=== PATIENT | female | born 1980 | race Caucasian/White ===

== ENCOUNTER 2023-04-15 08:22 | Observation (INO) ==
--- NOTE | 2023-03-27 12:03 | PAT Medication Instructions ---
Medication Instructions Date of Service March 27, 2023 Home Medications Medication Instructions Recorded etonogestrel 68 mg subdermal 1 implant subdermal ONCE #1 ea 01/25/22 implant (Nexplanon) metformin 500 mg tablet,extended 500 mg PO DAILY #90 tabs 12/10/22 release 24hr cyclobenzaprine 5 mg tablet 5 - 10 mg PO HS #60 tabs 03/03/23 citalopram 20 mg tablet 20 mg PO DAILY #90 tabs 03/12/23 dextroamphetamine-amphetamine ER 5 5 mg PO DAILY #30 caps 03/12/23 mg 24hr capsule,extend release (Adderall XR) famotidine 40 mg tablet 40 mg PO DAILY #30 tabs 03/12/23 etonogestrel 68 mg subdermal implant (Nexplanon) 1 implant subdermal ONCE metformin 500 mg tablet,extended release 24hr 500 mg PO DAILY gabapentin 300 mg capsule 600 mg PO PM PRN Pain cyclobenzaprine 5 mg tablet 5 - 10 mg PO HS citalopram 20 mg tablet 20 mg PO DAILY dextroamphetamine-amphetamine ER 5 mg 24hr capsule,extend release (Adderall XR) 5 mg PO DAILY famotidine 40 mg tablet 40 mg PO DAILY Continue as directed etonogestrel 68 mg subdermal implant (Nexplanon) 1 implant subdermal ONCE citalopram 20 mg tablet 20 mg PO DAILY famotidine 40 mg tablet 40 mg PO DAILY DO NOT take the morning of surgery metformin 500 mg tablet,extended release 24hr 500 mg PO DAILY dextroamphetamine-amphetamine ER 5 mg 24hr capsule,extend release (Adderall XR) 5 mg PO DAILY Take morning of surgery With a small sip of water, OTHERWISE NOTHING TO EAT OR DRINK AFTER MIDNIGHT: gabapentin 300 mg capsule 600 mg PO PM PRN Pain (if needed) Take evening before surgery gabapentin 300 mg capsule 600 mg PO PM PRN Pain (if needed) cyclobenzaprine 5 mg tablet 5 - 10 mg PO HS Other Notes If you have any questions please call us at [phone] or [phone] or [phone] or [phone]
--- NOTE | 2023-04-01 10:52 | Anesthesiology Consultation ---
Date of Service April 01, 2023 Assessment & Plan (1) Encounter for pre-operative examination: - awaiting upcoming PCP clearance 04/03/23. - check BSG and urine test STAT am DOS. Chart Review Chart Review: Pending: Refer to Additional Notes / Consult section and Patient seen in Pre Admission Testing Teaching & Discussion Pre-Anesthesia Teaching/Discussion Notes: Instructed NPO after midnight before surgery, except medications with 15 cc of water. Medication instructions provided according to the PAT guidelines. History Surgery Operation Date: 04/15/23 07:45 Proposed Procedures p L4-S1 Decompression and Fusion, Spinal Cord Monitoring - Timothy Bonilla DO Height/Weight Height: 5 ft 2 in Weight: 100.3 kg Allergies Allergy/AdvReac Type Severity Reaction Status Date / Time seasonal allergies Allergy Intermediate CONGESTION Uncoded 03/20/23 11:04 Medications Home Medications Medication Instructions Recorded Confirmed Last Taken etonogestrel 68 mg subdermal 1 implant subdermal ONCE #1 ea 01/25/22 03/20/23 Unknown implant (Nexplanon) metformin 500 mg tablet,extended 500 mg PO DAILY #90 tabs 12/10/22 03/20/23 12/12/22 release 24hr gabapentin 300 mg capsule 600 mg PO PM PRN Pain 12/13/22 03/20/23 Unknown cyclobenzaprine 5 mg tablet 5 - 10 mg PO HS #60 tabs 03/03/23 03/20/23 Unknown citalopram 20 mg tablet 20 mg PO DAILY #90 tabs 03/12/23 03/20/23 Unknown dextroamphetamine-amphetamine ER 5 5 mg PO DAILY #30 caps 03/12/23 03/20/23 Unknown mg 24hr capsule,extend release (Adderall XR) famotidine 40 mg tablet 40 mg PO DAILY #30 tabs 03/12/23 03/20/23 Unknown Past Medical History Medical History (Updated 04/01/23 @ 11:10 by Radha Betts PA-C) ADHD Anxiety and depression GERD (gastroesophageal reflux disease) improved with famotidine, pt reports still occasionally wakes in morning with nausea and vomiting History of COVID-19 >1 YR AGO, 2021- FEVER, COUGH, CHILLS; RESOLVED Hypothyroidism Insulin resistance ON METFORMIN Nausea and vomiting after administration of anesthetic agent patient unsure if received scop patch with PONV s/p partial thyroidectomy requiring overnight stay vs SDS PCOS (polycystic ovarian syndrome) Vertigo occasional Patient denies h/o stroke, seizures, heart attack, heart failure, HTN, blood clots or blood transfusions. Exercise / Class Metabolic Activity III < 4 Walking/Shop/Light housework (denies chest discomfort or shortness of breath with usual activities) Past Family History Family History Grandmother (Paternal) Breast cancer Mother Heart disease Depression Father Heart disease Dementia Sister Dyslipidemia Denies family history of Ovarian cancer Prostate cancer Myocardial infarction Colorectal cancer Past Surgical History Surgical History H/O partial thyroidectomy Past Anesthesia History No Hx of Anesthesia Complications and No Family Hx of Anesthesia Complications History of PONV History of PONV (s/p partial thyroidectomy-SDS changed to overnight d/t PONV; unsure if scop patch was administered) and Hx of Motion Sickness Social History Smoking Status: Never smoker Do You Dip or Chew Tobacco: No Hx Alcohol Use: Yes alcohol intake frequency: holidays/special occasions only Hx Substance Use: Yes (edibles, once every couple months - advised) substance use type: marijuana Last Used Substance Other:: 3 mos ago Review of Systems Snoring, denies witnessed apneas. Patient denies chest pain, shortness of breath, dyspnea on exertion, reflux, fever, chills, cough, wheezing, or palpitations. Physical Exam Vital Signs Vitals BP 123/86 P 102 (pt states is often anxious in clinical settings) TEMP 98.4 SP02 97% on RA RESP 17 Physical Full cervical extension range of motion without pain TMD 3.5 finger breadths Mallampati Score 3 Dentition: intact, denies chipped or loose teeth, caps/crowns, implants or bridges Lungs: normal respiratory effort. Clear throughout to auscultation, no adventitious breath sounds Cardiac: tachycardic, regular rhythm, no murmurs noted Carotid arteries: negative bruit bilat Lab Results Anesthesia Preop Results Results Anesthesia Widget: WBC 6.60 K/ul (4.8-10.8) 04/01/23 Hgb 13.6 g/dl (12.0-16.0) 04/01/23 Hct 40.9 % (37.0-47.0) 04/01/23 Plt 296 K/uL (130-400) 04/01/23 Na 135 mmol/L (136-145) L 04/01/23 K 4.5 mmol/L (3.5-5.1) 04/01/23 Cl 101 mmol/L (98-107) 04/01/23 CO2 27 mmol/L (21-32) 04/01/23 BUN 10 mg/dl (6-23) 04/01/23 Creat 0.83 mg/dl (0.6-1.2) 04/01/23 Glucose Level 138 mg/dl (70-99(Fasting)) H 04/01/23 PT 10.5 Seconds (9.0-12.0) 04/01/23 PTT 27.3 Seconds (21.0-31.0) 04/01/23 INR 1.0 (0.9-1.1) 04/01/23 HA1c 6.5 % (4.5-5.6) H 04/01/23 Urine Color Yellow 04/01/23 Urine Appearance Clear (Clear) 04/01/23 Urine pH 8.0 (4.5-7.5) H 04/01/23 Urine Specific [place] 1.025 (1.000-1.030) 04/01/23 Urine Protein Negative (Negative) 04/01/23 Urine Glucose (UA) Negative (Negative) 04/01/23 Urine Ketones Negative (Negative) 04/01/23 Urine Blood Negative (Negative) 04/01/23 Urine Nitrite Negative (Negative) 04/01/23 Urine Bilirubin Negative (Negative) 04/01/23 Urine Urobilinogen Negative (Negative) 04/01/23 Urine Leukocyte Esterase Negative (Negative) 04/01/23 Blood Type A Negative 04/01/23 Antibody Screen NEGATIVE 04/01/23 Testing Electrocardiogram Date: 02/02/23 Poor data quality NSR, rate 86 bpm Chest X-Ray Date: 04/01/23 No prior studies are available for comparison at the time of dictation. Surgical clips project over the left lower neck. The cardiomediastinal silhouette is unremarkable. The lungs and pleural spaces are clear. There is no pneumothorax. The bony thorax appears intact. IMPRESSION: No active disease in the chest. COVID-19 Risk Screen Screening Information COVID-19 Screen Date: 04/01/23 Exposure 21 Days Family/Household +COVID Last 21 Days: No Exposure 10 Days Any COVID Exposure Last 10 Days: No Symptoms Last 10 Days Experienced COVID Sx Last 10 Days: No + COVID 0-90 Days COVID + in Last 0-90 Days: No
[~2023-04-15 08:22] MED LIST: ACETAMINOPHEN 500 MG TAB PO SCH; CeleBREX 200 MG CAP PO SCH; GABAPENTIN 600 MG DOSE PO SCH; LR 15ML/HR IV SCH; ceFAZolin 2000MG 2,000 MG/15 ML SYR IV SCH
[2023-04-15] MEDS ORDERED: MIDAZOLAM HCL 1 MG/ML 2ML VIAL ONE (09:06)
[2023-04-15] MEDS ORDERED: fentaNYL citrate PF 100 MCG/2 ML VIAL ONE (09:06)
--- NOTE | 2023-04-15 09:32 | History & Physical Bridge Note ---
Date of Service April 15, 2023 History & Physical Bridge Note I have examined the patient, reviewed the History & Physical and in the interval since the performance of the History & Physical I have noted the following changes of clinical significance: no changes noted
--- NOTE | 2023-04-15 09:34 | History & Physical Report ---
Date of Service April 15, 2023 Assessment & Plan (1) Neurogenic claudication due to lumbar spinal stenosis: Plan: L4-S1 decompression and fusion History of Present Illness Chief Complaint: Back and leg pain Primary Care Provider: Zi Cooper DO This is a 42-year-old female who presents with chronic persistent back and leg pain after failing course of nonoperative care she is here for surgical invention. Allergies Allergy/AdvReac Type Severity Reaction Status Date / Time No Known Allergies Allergy Verified 04/11/23 07:33 Home Medications Medication Instructions Recorded Confirmed Type etonogestrel 68 mg subdermal 1 implant subdermal ONCE #1 ea 01/25/22 04/15/23 Rx implant (Nexplanon) metformin 500 mg tablet,extended 500 mg PO DAILY #90 tabs 12/10/22 04/15/23 Rx release 24hr gabapentin 300 mg capsule 600 mg PO PM PRN Pain 12/13/22 04/15/23 History (Neurontin) citalopram 20 mg tablet 20 mg PO DAILY #90 tabs 03/12/23 04/15/23 Rx famotidine 40 mg tablet 40 mg PO DAILY #30 tabs 03/12/23 04/15/23 Rx cyclobenzaprine 5 mg tablet 5 - 10 mg PO HS PRN muscle relax 04/15/23 04/15/23 History dextroamphetamine-amphetamine ER 5 mg PO DAILY 04/15/23 History 10 mg 24hr capsule,extend release (Adderall XR) Past Med/Surg History Medical History (Updated 04/15/23 @ 09:33 by Timothy Bonilla DO) Anxiety and depression GERD (gastroesophageal reflux disease) improved with famotidine, pt reports still occasionally wakes in morning with nausea and vomiting History of COVID-19 >1 YR AGO, 2021- FEVER, COUGH, CHILLS; RESOLVED Hypothyroidism Insulin resistance ON METFORMIN Nausea and vomiting after administration of anesthetic agent patient unsure if received scop patch with PONV s/p partial thyroidectomy requiring overnight stay vs SDS PCOS (polycystic ovarian syndrome) Vertigo occasional Surgical History (Updated 04/03/23 @ 09:53 by Zi Cooper DO) H/O partial thyroidectomy Family History Grandmother (Paternal) Breast cancer Mother Heart disease Depression Father Heart disease Dementia Sister Dyslipidemia Denies family history of Ovarian cancer Prostate cancer Myocardial infarction Colorectal cancer Social History Smoking Status: Never smoker Second Hand Exposure: Yes (in the past); Do You Dip or Chew Tobacco: No; Tobacco Cessation Education Requested by Patient: No Hx Alcohol Use: Yes Alcohol Intake Frequency: 2-3 x/Week Hx Substance Use: Yes (edibles, once every couple months - advised) Non- Prescribed Medications: Marijuana Last Used Substance Other:: 3 mos ago Preferred Language: Yakut Communication Ability: Effective Visual Impairment: No Limitations Hearing Ability: Normal Overhead Worker Required: No Beliefs That Will Affect Care: None marital status: Single Current Living Situation: Alone current occupational status: employed current occupation: [employer] Other Information That Helps Us Care for You: No Feels Safe at Home: Yes Safety Concerns: Feels Safe At This Time Childhood Exposure to Second-Hand Smoke: Yes Diet: regular Diet Comment: regular caffeine: Yes during the past year weight has: increased > 10 lbs Dental Care, Regularly: No Physical Activity Frequency: Daily Seatbelt Use: always Sunscreen Use: Yes Assistive Devices: Glasses Physical Exam Physical Exam: Patient is alert and oriented Heart regular rate and rhythm Lungs clear Results & Data Results & Data Vital Signs (Past 12 Hours) Vital Signs Temp Pulse Resp BP Pulse Ox O2 Del Method 04/15/23 08:46 36.9 C 99 H 18 142/97 H 97 Room Air
[2023-04-15] MEDS ORDERED: SCOPOLAMINE 1 MG TDSY TD ONE ×2 (09:44→09:46)
[2023-04-15] MEDS ORDERED: LABETALOL HCL IV 5 MG/ML 20ML IV PRN (09:47)
[2023-04-15] MEDS ORDERED: ONDANSETRON INJ 2 MG/ML 2 ML VIAL IV PRN ×2 (09:47→14:20)
[2023-04-15] MEDS ORDERED: PROMETHAZINE HCL 12.5 MG in SODIUM CHLORIDE 0.9% 50 ML IV PRN ×2 (09:47→14:20)
[2023-04-15] MEDS ORDERED: ATROPINE SULFATE 0.1 MG/ML 10ML SYR IV PRN (09:47)
[2023-04-15] MEDS ORDERED: ceFAZolin 330 MG/ML 1 GM VIAL ONE (09:50)
[2023-04-15] MEDS ORDERED: BUPIVACAINE/EPINEPHRINE 0.25% 1:200,000 30 ML VIAL ONE (09:50)
[2023-04-15] MEDS ORDERED: ROCURONIUM BROMIDE 10 MG/ML 5 ML VIAL IV ONE ×3 (10:17→11:02)
[2023-04-15] MEDS ORDERED: PROPOFOL IV EMULSION 10 MG/ML 20 ML VIAL IV ONE ×2 (10:17→12:08)
[2023-04-15] MEDS ORDERED: LIDOCAINE 2% 2 ML VIAL/AMP(20MG/ML) INFIL ONE (10:17)
[2023-04-15] MEDS ORDERED: DEXAMETHASONE SOD INJ 4 MG/ML VIAL ONE (11:02)
[2023-04-15] MEDS ORDERED: ePHEDrine sulfate 50 MG/ML AMP ONE (11:02)
[2023-04-15] MEDS ORDERED: FLOSEAL HEMOSTATIC MATRIX 10ML TOP ONE (11:05)
[2023-04-15] MEDS ORDERED: GLYCOPYRROLATE 0.2 MG/ML VIAL ONE (12:18)
[2023-04-15] MEDS ORDERED: NEOSTIGMINE METHYLSULFATE 1 MG/ML 10ML VIAL ONE (12:18)
--- NOTE | 2023-04-15 12:31 | Operative Report ---
Post Operative Report Pre & Post Diagnosis Operation Date: 04/15/23 10:05 Pre-Op Diagnosis: Neurogenic claudication due to lumbar spinal stenosis Spondylolisthesis L5-S1 Morbid obesity Post-Op Diagnosis: Same I identified the patient and participated in the time-out.: Yes Procedure Operation Date: 04/15/23 10:05 Actual Procedures #1 lumbar decompression bilateral medial facetectomies and foraminotomies L4-L5 L5-S1. #2 posterior spinal fusion L4-L5 L5-S1. #3 placed posterior instrumentation L4-L5 L5-S1. #5 placement of interbody cages L4-5 L5-S1. #6 placement Spira 13 x 26 mm at L4-L5 and 9 x 22 mm at L5-S1. #6 placement locally harvested morselized autograft and posterior gutters. #7 placement of I factor combined with the test interbody space and posterior gutters. Surgeon Timothy Bonilla, DO Echo Technician Christina Miller Estimated Blood Loss 550 Findings See Below The patient is 5 foot 2 weighing over 100 kg with a BMI in excess of 40. Patient's body habitus did contribute to significant technical difficulty of primary deepest retractors and longer instruments in order to perform her procedure. This at least 50% increased operative time. Specimens None Indications This is a 42-year-old female who presents above-mentioned diagnosis of failed course of nonoperative care she is here for surgical invention. Description of Procedure Patient was met with identified informed consent obtained. Patient was then taken to the operative suite underwent a patient placed in a prone position the Gabriels table top Rich frame. All bony promises well-padded eyes inspected to ensure no external pressure placed upon the. This point lumbar spine was prepped and draped in normal sterile fashion. Sharp dissection with the assistance of Bovie cautery to form down to and exposing lamina transverse process of L5 and the sacral ala bilaterally. Obvious bilateral pars defect identified. A complete laminectomy was performed addressing bilateral foraminal stenosis. Pedicle screws then attempted to be placed at L5 bilaterally. The pedicles were hypotrophic from the pars defect and I was unable to obtain adequate placement and purchase. Pedicle screws were placed successfully and S1. I chose to extend the decompression up to L4 to address further lateral recess stenosis and obtain adequate fixation for the fusion required for the spondylolisthesis. I did obtain adequate purchase in the bilateral L4 pedicles. At this point by way of transforaminal approach on the right a complete discectomy of L4-L5 was performed endplates guided to subcortically bone and a 13 x 26 mm Spira cage with I factor tapped position. By way of a transfemoral approach on the left at L5-S1 was able to obtain access to the spine disc base which is markedly collapsed from the spondylolisthesis. Was able to establish approximate 9 mm of height and placed a 9 mm Spira cage with I factor into position. This provided marked improvement of the foraminal disease. Proper size rods were placed locked in position bilaterally. The transverse processes of L4-L5 and the sacral ala burred to subcortically bone. I factor amount of the test and locally harvested morselized autograft was placed in the posterior gutters. 15 round JACKY drain inserted. The incision was then closed with 1 Vicryl to fascia 2-0 Vicryl subcutaneously and 4 Monocryl for final skin closure. Steri-Strip sterile dressing placed. Patient awakened and taken to PACU in stable condition. Please note spinal cord monitoring was utilized at the procedure no changes noted. Lastly Christina Miller was present at the entire surgery involved the patient positioning complex portion of the surgery and final skin closure. I attest to the content of the Intraoperative Record and any orders documented therein. Any exceptions are noted below.
--- NOTE | 2023-04-15 12:48 | Fluoroscopy Report ---
FL lumbar spine 2-3V CLINICAL HISTORY: L4-S1 DFI COMPARISON STUDY: Lumbar spine MRI October 10, 2022. FLUOROSCOPY TIME: 46 seconds. Ka, r: 44.48 mGy FLUOROSCOPIC IMAGES: 2 FINDINGS: Fluoroscopy was provided during L4-L5 and L5-S1 discectomies with interbody spacer placemen t. Anali decompression is noted. There are bilateral pedicle screws at the L4, L5 and S1 levels. The hardware is intact. Bilateral L5 pars defects with anterolisthesis of L5 on S1 was depicted on previ ous MRI. IMPRESSION: Fluoroscopy provided L4-L5 and L5-S1 discectomies with posterior decompression and L4-S1 bilateral pedicle screw fusion. ACT 112: Negative or not required by law. Electronically signed by: Armen Griffiths M.D. 04/15/2023 12:47 PM
[2023-04-15] MEDS: HYDROmorphone INJ 1 MG/ML SYRINGE IV PRN ×3 (12:56→13:11)
[2023-04-15] MEDS ORDERED: SODIUM CHLORIDE 0.9% 1000ML 1,000 ML IV SCH (14:20)
[2023-04-15] MEDS ORDERED: FAMOTIDINE 20 MG TAB PO PRN (14:20)
[2023-04-15] MEDS ORDERED: bisacodyL 10 MG SUPP PR PRN (14:20)
[2023-04-15] MEDS ORDERED: PHARMACY GLYCEMIC MGMT CONSULT PRN (14:20)
[2023-04-15] MEDS ORDERED: LORazepam 0.5 MG TAB PO PRN (14:20)
[2023-04-15] MEDS ORDERED: DO NOT ADMINISTER PNEUMOCOCCAL VACCINE PRN (14:20)
[2023-04-15] MEDS ORDERED: ONDANSETRON 4 MG OD TAB PO PRN (14:20)
[2023-04-15] MEDS ORDERED: ACETAMINOPHEN 500 MG TAB PO PRN (14:20)
[2023-04-15] MEDS ORDERED: LORazepam 2 MG/1 ML VIAL IV PRN (14:20)
[2023-04-15] MEDS ORDERED: GABAPENTIN 300 MG CAP PO PRN (14:20)
[2023-04-15] MEDS ORDERED: MAGNESIUM HYDROXIDE SUSP 30 ML UDC PO PRN (14:20)
[2023-04-15] MEDS ORDERED: ACETAMINOPHEN 1,000 MG/100 ML VIAL IV PRN (14:20)
[2023-04-15] MEDS ORDERED: hydrOXYzine HCl 25 MG TAB PO PRN (14:20)
[2023-04-15] MEDS ORDERED: diphenhydrAMINE Capsule 25 MG CAP PO PRN (14:20)
[2023-04-15] MEDS ORDERED: METOCLOPRAMIDE HCL INJ 5 MG/ML 2 ML VIAL IV PRN (14:20)
[2023-04-15] MEDS ORDERED: DO NOT ADMINISTER FLU VACCINE PRN (14:20)
[2023-04-15] MEDS ORDERED: HYDROmorphone INJ 0.5 MG/0.5 ML SYR IV PRN (14:20)
[2023-04-15] MEDS ORDERED: NALOXONE HCL 0.4 MG/1 ML VIAL/CARP IV PRN (14:20)
[2023-04-15] MEDS ORDERED: SOD PHOSPHATE/SOD BIPHOSPHATE ENEMA 132 ML BTL PR PRN (14:20)
[2023-04-15] MEDS ORDERED: ALUMINUM/MAGNESIUM SUSP 30 ML UDC PO PRN (14:20)
[2023-04-15] MEDS ORDERED: HYDROmorphone INJ 1 MG/ML SYRINGE IV PRN (14:20)
--- NOTE | 2023-04-15 15:00 | Anesthesiology Progress Note ---
Date of Service April 15, 2023 Anesthesia Post Procedure Vital Signs Vital Signs: Temp Pulse Pulse Resp BP Pulse Ox O2 Del Method 04/15/23 14:30 101 H 12 98/68 L 98 Nasal Cannula 04/15/23 14:15 104 H 13 100/69 98 Nasal Cannula 04/15/23 14:00 102 H 13 93/66 L 97 Nasal Cannula 04/15/23 13:45 100 H 13 97/60 L 97 Nasal Cannula 04/15/23 13:30 36.4 C L 97 H 12 113/60 97 Nasal Cannula 04/15/23 13:20 96 H 12 110/66 99 Nasal Cannula 04/15/23 13:10 94 H 12 93/60 L 98 Nasal Cannula 04/15/23 13:00 98 H 14 94/49 L 96 Nasal Cannula 04/15/23 12:51 93 H 21 94/46 L 95 Nasal Cannula 04/15/23 12:43 36.0 C L 97 H 10 L 101/67 96 Nasal Cannula 04/15/23 08:46 36.9 C 99 H 18 142/97 H 97 Room Air O2 Flow Rate 04/15/23 14:30 2 04/15/23 14:15 2 04/15/23 14:00 2 04/15/23 13:45 2 04/15/23 13:30 2 04/15/23 13:20 4 04/15/23 13:10 4 04/15/23 13:00 4 04/15/23 12:51 4 04/15/23 12:43 4 04/15/23 08:46 Pain Intensity Lower Back: Pain Intensity: 3 Transfer of Care Handoff Completed per policy Notes Mental Status: alert / awake / arousable Patient Amnestic to Procedure: Yes Nausea / Vomiting: adequately controlled Pain: adequately controlled Airway Patency, RR, SpO2: stable & adequate BP & HR: stable & adequate Hydration State: stable & adequate Anesthetic Complications: no major complications apparent
[2023-04-15] MEDS ORDERED: GLUCOSE 10 TAB/TUBE PO PRN (15:15)
[2023-04-15] MEDS ORDERED: GLUCOSE 40% GEL 15 GM TUBE PO PRN (15:15)
[2023-04-15] MEDS ORDERED: DEXTROSE 50% 50 ML SYRINGE IV PRN (15:15)
[2023-04-15] MEDS ORDERED: CARBOHYDRATES FOR HYPOGLYCEMIA PO PRN (15:15)
[2023-04-15] MEDS ORDERED: GLUCAGON FOR INJ 1 MG VIAL IM PRN (15:15)
--- NOTE | 2023-04-15 15:45 | Hospitalist Consultation ---
Date of Consultation April 15, 2023 Assessment & Plan (1) Neurogenic claudication due to lumbar spinal stenosis: Neurogenic claudication 2/2 lumbar stenosis s/p decompression and fusion Postop pain control, DVT prophylaxis, and activity restrictions per primary team Patient recovering well at bedside. Does have some pain overlying her surgical site, and prior pain in her right leg is now more of a numbness, left leg feels normal Reports that she had bilateral leg pain and some back pain preoperatively. Postop she has some qualitative left numbness compared to the right, but no burning in either leg. She has some pain in her low back overlying the surgical site well controlled with tramadol. JACKY drain intact draining scant amount of sanguinous material Patient had approximately 550 cc of output intraoperatively, 100 cc of output in her catheter. She remains mildly tachycardic, and mild but improving hypotension. Clinically appears slightly volume contracted with tacky mucous membranes. Lungs are clear without evidence of rales/rhonchi on exam, and she is not hypoxic additional 500 cc LR ordered and then placed to maintenance Trend CBC/BMP daily BMI greater than 40 Preoperative EKG sinus rhythm without ST/T wave changes No prior history of angina No chest pain/chest pressure/shortness of breath postoperatively History of hemithyroidectomy Noted. Last TSH normal. No acute change in management for this History of PCOS Pre-DM management as noted Patient has a Nexplanon implant, noted Impaired fasting glucose Preop A1c 6.5% SSI insulin 04/15, may resume metformin on discharge if renal function remains at baseline Postop BSG 105. Patient having diet progressed, pharmacy on board for additional glycemic management as needed Anxiety/depression Continue citalopram 20 mg daily In summary Preethi is a pleasant 42-year-old female s/p lumbar decompression and fusion. She is doing well postoperatively, remains slightly volume contracted and tachycardic and receiving 1 additional fluid bolus and then placed on maintenance pending increase in p.o. intake. CBC/BMP in the morning. Hold Adderall while inpatient, otherwise can continue her home medications. DVT prophylaxis, activity, and pain control per primary team patient does have appropriate postoperative pain which is adequately controlled with tramadol. Pepcid daily is continued for stress prophylaxis, if epigastric pain develops convert this to Protonix. (2) PCOS (polycystic ovarian syndrome): (3) Thyroid nodule: (4) Hypothyroidism: (5) Anxiety and depression: (6) ADHD: History of Present Illness Attending Physician: Timothy Bonilla, DO History of Present Illness Preethi Escobedo is a 42-year-old female s/p L4-S1 decompression and fusion by Dr. Bonilla 04/15/2023, we have been consulted for postoperative medical management of comorbidities. Preethi has an additional history of PCOS, hypothyroidism, anxiety/depression, ADHD, thyroid nodule, and vertigo. She has a Nexplanon implant in place. Preoperative labs 04/01 had a normal white blood cell count, baseline hemoglobin of 13.6, baseline creatinine of 0.83, A1c of 6.5%, and baseline sodium of 135. UA was uninfected appearing, COVID 04/15/2023 was negative. Patient underwent L4-S1 decompression and fusion with Dr. Bonilla, 550 cc of estimated blood loss. Procedure was technically challenging due to BMI over 40 with increased operative time. No changes were noted on procedural spinal cord monitoring. She seen the bedside with her mother present. She reports that she is having some postop pain overlying her surgical site in her back, left leg feels numb but is not burning, and right leg feels good. Pain is improved with tramadol. She has not had any fever, chills, sweats, lightheadedness, dizziness. She does not feel her heart racing is not having any chest pain or chest pressure. She has not noticed any bleeding since coming out of surgery. She is able to move her legs with good strength and has not noticed any weakness. No nausea/vomiting. No abdominal pain. Confirms Nexplanon in left arm. No additional questions or concerns at the bedside Medical History: Reviewed Medications: Reviewed Surgical History: Reviewed Family history: Reviewed Allergies: Reviewed Social History: No tobacco/etoh Code Status: Full Code Allergies Allergy/AdvReac Type Severity Reaction Status Date / Time No Known Allergies Allergy Verified 04/11/23 07:33 Home Medications Medication Instructions Recorded Confirmed Type etonogestrel 68 mg subdermal 1 implant subdermal ONCE #1 ea 01/25/22 04/15/23 Rx implant (Nexplanon) metformin 500 mg tablet,extended 500 mg PO DAILY #90 tabs 12/10/22 04/15/23 Rx release 24hr gabapentin 300 mg capsule 600 mg PO PM PRN Pain 12/13/22 04/15/23 History (Neurontin) citalopram 20 mg tablet 20 mg PO DAILY #90 tabs 03/12/23 04/15/23 Rx famotidine 40 mg tablet 40 mg PO DAILY #30 tabs 03/12/23 04/15/23 Rx cyclobenzaprine 5 mg tablet 5 - 10 mg PO HS PRN muscle relax 04/15/23 04/15/23 History dextroamphetamine-amphetamine ER 5 mg PO DAILY 04/15/23 History 10 mg 24hr capsule,extend release (Adderall XR) Patient History Medical History (Updated 04/15/23 @ 09:33 by Timothy Bonilla DO) Anxiety and depression GERD (gastroesophageal reflux disease) improved with famotidine, pt reports still occasionally wakes in morning with nausea and vomiting History of COVID-19 >1 YR AGO, 2021- FEVER, COUGH, CHILLS; RESOLVED Hypothyroidism Insulin resistance ON METFORMIN Nausea and vomiting after administration of anesthetic agent patient unsure if received scop patch with PONV s/p partial thyroidectomy requiring overnight stay vs SDS PCOS (polycystic ovarian syndrome) Vertigo occasional Surgical History (Updated 04/03/23 @ 09:53 by Zi Cooper DO) H/O partial thyroidectomy Family History Grandmother (Paternal) Breast cancer Mother Heart disease Depression Father Heart disease Dementia Sister Dyslipidemia Denies family history of Ovarian cancer Prostate cancer Myocardial infarction Colorectal cancer Social History Smoking Status: Never smoker Second Hand Exposure: Yes (in the past); Do You Dip or Chew Tobacco: No; Tobacco Cessation Education Requested by Patient: No Hx Alcohol Use: Yes Alcohol Intake Frequency: 2-3 x/Week Hx Substance Use: Yes (edibles, once every couple months - advised) Non- Prescribed Medications: Marijuana Last Used Substance Other:: 3 mos ago Preferred Language: Sami Communication Ability: Effective Visual Impairment: No Limitations Hearing Ability: Normal Cpht Required: No Beliefs That Will Affect Care: None marital status: Single Current Living Situation: Alone current occupational status: employed current occupation: armed guard Other Information That Helps Us Care for You: No Feels Safe at Home: Yes Safety Concerns: Feels Safe At This Time Childhood Exposure to Second-Hand Smoke: Yes Diet: regular Diet Comment: regular caffeine: Yes during the past year weight has: increased > 10 lbs Dental Care, Regularly: No Physical Activity Frequency: Daily Seatbelt Use: always Sunscreen Use: Yes Assistive Devices: Glasses Review of Systems 2 Review of Systems: All systems reviewed & are unremarkable except as noted in HPI & below Physical Exam Physical Exam: General: A&Ox3. NAD. Cooperative. HEENT: Atraumatic, normocephalic. Vision/hearing grossly intact. Pupils equal and reactive to light Pulm: CTAB A&P. -wheezes, -rales, -rhonchi. Symmetrical chest rise. No increased work of breathing. No respiratory distress. Cardiac: Regular, tachycardic, -mrg. Radial pulses intact and symmetrical. Abdominal: Nontender, nondistended, soft. BS present. Skin/back: Postop midline lumbar surgical dressing intact, C/D/I. JACKY drain in place draining scant amount of sanguinous material. Extremities: Ankle dorsiflexion/plantarflexion 5/5 bilaterally. PT pulse intact bilaterally. Cap refill less than 2 seconds in hallux bilaterally. Sensation of soft touch is intact in feet bilaterally, has some qualitative difference in sensation with i more numbness in the left foot and ankle. Results & Data Results & Data Vital Signs (Past 12 Hours) Vital Signs Temp Pulse Pulse Resp BP Pulse Ox O2 Del Method 04/15/23 15:20 36.6 C 100 H 18 100/65 95 Room Air 04/15/23 14:50 36.8 C 108 H 18 99/58 L 99 Nasal Cannula 04/15/23 14:30 101 H 12 98/68 L 98 Nasal Cannula 04/15/23 14:15 104 H 13 100/69 98 Nasal Cannula 04/15/23 14:00 102 H 13 93/66 L 97 Nasal Cannula 04/15/23 13:45 100 H 13 97/60 L 97 Nasal Cannula 04/15/23 13:30 36.4 C L 97 H 12 113/60 97 Nasal Cannula 04/15/23 13:20 96 H 12 110/66 99 Nasal Cannula 04/15/23 13:10 94 H 12 93/60 L 98 Nasal Cannula 04/15/23 13:00 98 H 14 94/49 L 96 Nasal Cannula 04/15/23 12:51 93 H 21 94/46 L 95 Nasal Cannula 04/15/23 12:43 36.0 C L 97 H 10 L 101/67 96 Nasal Cannula 04/15/23 08:46 36.9 C 99 H 18 142/97 H 97 Room Air O2 Flow Rate 04/15/23 15:20 04/15/23 14:50 2 04/15/23 14:30 2 04/15/23 14:15 2 04/15/23 14:00 2 04/15/23 13:45 2 04/15/23 13:30 2 04/15/23 13:20 4 04/15/23 13:10 4 04/15/23 13:00 4 04/15/23 12:51 4 04/15/23 12:43 4 04/15/23 08:46 PG Care Time/CCT Total # of Minutes Spent Total Time Spent with Patient: Total time spent is greater than 50% in coordination of care (as documented) at patient's floor/unit and/or counseling patient: Coding Level of Care Code 77110 IN/OBS CONSULT LVL 4,60M Diagnoses Neurogenic claudication due to lumbar spinal stenosis M48.062 PCOS (polycystic ovarian syndrome) E28.2 Thyroid nodule E04.1 Hypothyroidism E03.9 Anxiety and depression F41.9; F32.A ADHD F90.9
[2023-04-15] MEDS: traMADol HCL 50 MG TABLET PO PRN ×2 (15:53→20:49)
[2023-04-15] MEDS ORDERED: LACTATED RINGER'S 500 ML IV ONE (15:55)
[2023-04-15] MEDS ORDERED: LACTATED RINGER'S 1,000 ML IV SCH (16:00)
[2023-04-15] MEDS: CHECK SCOPOLAMINE PATCH PLACEMENT SCH (16:32)
[2023-04-15] MEDS: INSULIN ASPART PER UNIT CHARGE SC SCH ×2 (17:41→21:29)
[2023-04-15 18:27] LABS: Hemoglobin 10.9 g/dl (12.0-16.0)
[2023-04-15] MEDS ORDERED: SODIUM CHLORIDE 0.9% 250 ML IV PRN (18:32)
[2023-04-15] MEDS: ceFAZolin 2000MG 2,000 MG/15 ML SYR IV SCH (18:36)
[2023-04-15] MEDS: DOCUSATE SODIUM/SENNA 50/8.6MG TAB PO SCH (20:30)
[2023-04-16] MEDS: CHECK SCOPOLAMINE PATCH PLACEMENT SCH ×3 (01:22→15:30)
[2023-04-16] MEDS: ceFAZolin 2000MG 2,000 MG/15 ML SYR IV SCH (02:13)
[2023-04-16] MEDS: traMADol HCL 50 MG TABLET PO PRN ×2 (03:17→17:54)
[2023-04-16] MEDS: oxyCODONE HCL IR 5 MG TAB (IMMEDIATE RELEASE) PO PRN ×3 (04:04→22:28)
[2023-04-16] MEDS: POLYETHYLENE (MIRALAX) 17 GM PACK PO SCH ×3 (06:16→17:55)
[2023-04-16 07:27] LABS: Basophils # (auto) 0.01 K/uL (0-0.2); Basophils % (auto) 0.1 %; Eosinophils # (auto) 0.02 K/uL (0-0.50); Eosinophils % (auto) 0.2 %; Hematocrit (blood only) 30.9 % (37.0-47.0); Hemoglobin 10.6 g/dl (12.0-16.0); Immature Granulocytes # (auto) 0.04 K/uL (0.01-0.20); Immature Granulocytes % (auto) 0.3 %; Lymphocytes # (auto) 2.04 K/uL (1.2-3.4); Lymphocytes % (auto) 17.2 %; Mean Corpuscular Hgb Conc 34.3 g/dL (32.0-36.0); Mean Corpuscular Volume 90.4 fL (80.0-100.0); Mean Platelet Volume 10.1 fL (9.4-12.4); Monocytes # (auto) 0.97 K/uL (0.11-0.59); Monocytes % (auto) 8.2 %; Neutrophils # (auto) 8.76 K/uL (1.40-6.50); Platelet Count 261 K/uL (130-400); RDW Coefficient of Variation 13.6 % (11.5-14.5); RDW Standard Deviation 44.8 fL (36.4-46.3); Red Blood Count 3.42 M/uL (4.20-5.40); White Blood Count 11.84 K/ul (4.8-10.8)
[2023-04-16 07:38] LABS: BUN Creatinine Ratio 11.1 (10-20); Calcium 8.5 mg/dl (8.6-10.3); Creatinine Clr Calc Pharmacy 101.6 ml/min; Est GFR (African American) 104.6 ml/min; Est GFR (Non-African American) 90.2 ml/min; Potassium 4.1 mmol/L (3.5-5.1)
[2023-04-16] MEDS: FAMOTIDINE 40 MG TABLET PO SCH (08:07)
[2023-04-16] MEDS: dexAMETHasone 6 MG in SYRINGE 0 ML IV SCH (08:07)
[2023-04-16] MEDS: CITALOPRAM 20 MG TAB PO SCH (08:07)
[2023-04-16] MEDS: INSULIN ASPART PER UNIT CHARGE SC SCH ×4 (08:50→21:41)
[2023-04-16] MEDS ORDERED: NovoLIN-N (NPH) PER UNIT CHARGE SQ ONE (12:15)
--- NOTE | 2023-04-16 12:20 | Orthopedic Progress Note ---
Date of Service April 16, 2023 Assessment & Plan (1) Neurogenic claudication due to lumbar spinal stenosis: Plan: This time continue physical therapy monitor JACKY operatively discharge over the next few days. Admission and Anticipated Discharge Date Admission Date: April 15, 2023 Subjective Back pain controlled leg pain improved Physical Exam Physical Exam: Patient is in the chair at the bedside. Strength testing. Appears comfortable. Results & Data Vital Signs (Past 12 Hours) Vital Signs Temp Pulse Resp BP Pulse Ox O2 Del Method 04/16/23 11:10 36.9 C 92 H 16 103/70 93 Room Air 04/16/23 07:41 36.6 C 86 16 101/69 94 Room Air 04/16/23 03:21 36.6 C 75 16 98/64 L 98 Room Air
--- NOTE | 2023-04-16 15:17 | Pharmacy Report ---
Pharmacy Glycemic Short Note 2 - Date of Service April 16, 2023 - Glycemic Short BSG Results (Last 24 hours): 04/15/23 04/15/23 04/16/23 16:59 20:30 06:56 Glucose 117 H POC Glucose 149 H 158 H 04/16/23 04/16/23 07:54 11:48 Glucose POC Glucose 126 H 176 H OUTPATIENT ANTIDIABETIC REGIMEN: * metformin ASSESSMENT: * 42 year old s/p surgery, POD 1 - pharmacy consulted for glycemic management. Received only 4 units of insulin yesterday, despite IV steroids given intraoperatively. * Fasting BSG 117 mg/dL - Patient continues on dexamethasone 6 mg iv daily today. Lunch BSG trending upward, patient PO intake improving. Anticipate seeing effects from ongoing steroids. Will start conservatively with NPH 10 units x 1 to help cover BSGs today PLAN FOR INPATIENT GLYCEMIC CONTROL: * Hold outpatient oral diabetes medications * Basal insulin * NPH 10 units x 1 * Bolus insulin * NovoLog per scale ACHS or Q6hrs while NPO * Goal Range: Low 110 mg/dL - High 140 mg/dL * Correction Factor: 25 mg/dL/unit * Nutritional / Prandial insulin per carb ratio of 1 unit per 7 grams CHO consumed
--- NOTE | 2023-04-16 17:06 | Hospitalist Progress Note ---
Date of Service April 16, 2023 Assessment & Plan (1) Neurogenic claudication due to lumbar spinal stenosis: Plan: (1) Neurogenic claudication due to lumbar spinal stenosis: Neurogenic claudication 2/2 lumbar stenosis s/p decompression and fusion Postop pain control, DVT prophylaxis, and activity restrictions per primary team Patient recovering well at bedside. BMI greater than 40 Preoperative EKG sinus rhythm without ST/T wave changes No prior history of angina No chest pain/chest pressure/shortness of breath postoperatively History of hemithyroidectomy Noted. Last TSH normal. No acute change in management for this History of PCOS Pre-DM management as noted Patient has a Nexplanon implant, noted Impaired fasting glucose Preop A1c 6.5% SSI insulin 04/15, may resume metformin on discharge if renal function remains at baseline Postop BSG 105. Patient having diet progressed, pharmacy on board for additional glycemic management as needed Anxiety/depression Continue citalopram 20 mg daily Admission and Anticipated Discharge Date Admission Date: April 15, 2023 Subjective Patient feels well. Denies chest pain or shortness of breath. Denies dizziness, headache Review of Systems Review of Systems: All systems reviewed & are unremarkable except as noted in Subjective Physical Exam Physical Exam: General: Awake, conversant Heart: S1, S2/regular rate and rhythm, no murmur rubs or gallops Lungs: Clear to auscultation bilaterally. Normal effort Abdomen: Soft/nontender/nondistended. No hepatosplenomegaly Extremities: No clubbing/cyanosis. No edema Behavior: Appropriate, cooperative Results & Data Results & Data Vital Signs (Past 12 Hours) Vital Signs Temp Pulse Resp BP Pulse Ox O2 Del Method 04/16/23 15:34 36.9 C 86 16 105/69 95 Room Air 04/16/23 13:59 100 H 94 Room Air 04/16/23 11:10 36.9 C 92 H 16 103/70 93 Room Air 04/16/23 07:41 36.6 C 86 16 101/69 94 Room Air Laboratory Results Abnormal lab results 04/15/23 04/15/23 04/16/23 Range/Units 18:10 20:30 06:56 WBC 11.84 H (4.8-10.8) K/ul RBC 3.42 L (4.20-5.40) M/uL Hgb 10.9 L 10.6 L (12.0-16.0) g/dl Hct 32.0 L 30.9 L (37.0-47.0) % Neut # (Auto) 8.76 H (1.40-6.50) K/uL [place] # (Auto) 0.97 H (0.11-0.59) K/uL Sodium (136-145) mmol/L Glucose (70-99(Fasting)) mg/dl POC Glucose 158 H (70-99) mg/dl Calcium (8.6-10.3) mg/dl 04/16/23 04/16/23 04/16/23 Range/Units 06:56 07:54 11:48 WBC (4.8-10.8) K/ul RBC (4.20-5.40) M/uL Hgb (12.0-16.0) g/dl Hct (37.0-47.0) % Neut # (Auto) (1.40-6.50) K/uL [place] # (Auto) (0.11-0.59) K/uL Sodium 135 L (136-145) mmol/L Glucose 117 H (70-99(Fasting)) mg/dl POC Glucose 126 H 176 H (70-99) mg/dl Calcium 8.5 L (8.6-10.3) mg/dl 04/16/23 Range/Units 16:56 WBC (4.8-10.8) K/ul RBC (4.20-5.40) M/uL Hgb (12.0-16.0) g/dl Hct (37.0-47.0) % Neut # (Auto) (1.40-6.50) K/uL [place] # (Auto) (0.11-0.59) K/uL Sodium (136-145) mmol/L Glucose (70-99(Fasting)) mg/dl POC Glucose 157 H (70-99) mg/dl Calcium (8.6-10.3) mg/dl PG Care Time/CCT Total # of Minutes Spent Total Time Spent with Patient: Total time spent is greater than 50% in coordination of care (as documented) at patient's floor/unit and/or counseling patient: Coding Level of Care Code 12090 SUB INP/OBS CARE 2/35MIN Diagnoses Neurogenic claudication due to lumbar spinal stenosis M48.062
[2023-04-16] MEDS: DOCUSATE SODIUM/SENNA 50/8.6MG TAB PO SCH (20:35)
[2023-04-17] MEDS: CHECK SCOPOLAMINE PATCH PLACEMENT SCH ×4 (01:23→22:52)
[2023-04-17] MEDS: POLYETHYLENE (MIRALAX) 17 GM PACK PO SCH ×3 (01:24→12:42)
[2023-04-17] MEDS: oxyCODONE HCL IR 5 MG TAB (IMMEDIATE RELEASE) PO PRN ×3 (03:19→20:53)
[2023-04-17] MEDS: dexAMETHasone 6 MG in SYRINGE 0 ML IV SCH (08:36)
[2023-04-17] MEDS: FAMOTIDINE 40 MG TABLET PO SCH (08:36)
[2023-04-17] MEDS: CITALOPRAM 20 MG TAB PO SCH (08:36)
[2023-04-17] MEDS: INSULIN ASPART PER UNIT CHARGE SC SCH ×4 (08:37→20:19)
[2023-04-17] MEDS ORDERED: NovoLIN-N (NPH) PER UNIT CHARGE SQ ONE (09:00)
--- NOTE | 2023-04-17 09:58 | Orthopedic Progress Note ---
Date of Service April 17, 2023 Assessment & Plan (1) Neurogenic claudication due to lumbar spinal stenosis: Plan: This time continue physical therapy monitor JACKY output anticipate discharge home tomorrow. Admission and Anticipated Discharge Date Admission Date: April 15, 2023 Subjective Patient's back pain is controlled leg pain improved Physical Exam Physical Exam: Patient is sent to the bedside. Is for strength testing. Results & Data Vital Signs (Past 12 Hours) Vital Signs Temp Pulse Resp BP Pulse Ox O2 Del Method 04/17/23 08:47 97/62 L 04/17/23 07:33 36.7 C 89 16 92/57 L 96 Room Air
[2023-04-17] MEDS: traMADol HCL 50 MG TABLET PO PRN (13:57)
--- NOTE | 2023-04-17 16:17 | Hospitalist Progress Note ---
Date of Service April 17, 2023 Assessment & Plan (1) Neurogenic claudication due to lumbar spinal stenosis: Plan: (1) Neurogenic claudication due to lumbar spinal stenosis: Neurogenic claudication 2/2 lumbar stenosis s/p decompression and fusion Postop pain control, DVT prophylaxis, and activity restrictions per primary team Patient recovering well at bedside. Acute blood loss anemia/anemia due to hemodilution BMI greater than 40 Preoperative EKG sinus rhythm without ST/T wave changes No prior history of angina No chest pain/chest pressure/shortness of breath postoperatively History of hemithyroidectomy Noted. Last TSH normal. No acute change in management for this History of PCOS Pre-DM management as noted Patient has a Nexplanon implant, noted Impaired fasting glucose Preop A1c 6.5% SSI insulin 04/15, may resume metformin on discharge if renal function remains at baseline Postop BSG 105. Patient having diet progressed, pharmacy on board for additional glycemic management as needed Anxiety/depression Continue citalopram 20 mg daily Admission and Anticipated Discharge Date Admission Date: April 15, 2023 Subjective Patient feels well. Walking more. Physical Exam Physical Exam: General: Awake, conversant Heart: S1, S2/regular rate and rhythm, no murmur rubs or gallops Lungs: Clear to auscultation bilaterally. Normal effort Abdomen: Soft/nontender/nondistended. No hepatosplenomegaly Extremities: No clubbing/cyanosis. No edema Behavior: Appropriate, cooperative Results & Data Results & Data Vital Signs (Past 12 Hours) Vital Signs Temp Pulse Resp BP Pulse Ox O2 Del Method 04/17/23 15:35 36.8 C 84 18 116/75 93 Room Air 04/17/23 08:47 97/62 L 04/17/23 07:33 36.7 C 89 16 92/57 L 96 Room Air PG Care Time/CCT Total # of Minutes Spent Total Time Spent with Patient: Total time spent is greater than 50% in coordination of care (as documented) at patient's floor/unit and/or counseling patient: Coding Level of Care Code 15842 SUB INP/OBS CARE 2/35MIN Diagnoses Neurogenic claudication due to lumbar spinal stenosis M48.062
[2023-04-17] MEDS ORDERED: MELATONIN 3 MG TAB PO PRN (20:49)
[2023-04-17] MEDS: DOCUSATE SODIUM/SENNA 50/8.6MG TAB PO SCH (20:53)
[2023-04-18] MEDS: traMADol HCL 50 MG TABLET PO PRN ×2 (05:23→10:47)
[2023-04-18] MEDS: FAMOTIDINE 40 MG TABLET PO SCH (08:23)
[2023-04-18] MEDS: dexAMETHasone 6 MG in SYRINGE 0 ML IV SCH (08:23)
[2023-04-18] MEDS: CITALOPRAM 20 MG TAB PO SCH (08:23)
[2023-04-18] MEDS: INSULIN ASPART PER UNIT CHARGE SC SCH (08:35)
[2023-04-18] MEDS ORDERED: NovoLIN-N (NPH) PER UNIT CHARGE SQ ONE (09:00)
--- NOTE | 2023-04-18 10:00 | Discharge Summary ---
Date of Service April 18, 2023 Admission HPI Per Admitting Provider This is a 42-year-old female who presents with chronic persistent back and leg pain after failing course of nonoperative care she is here for surgical invention. Principal Diagnosis Lumbar spinal stenosis with neurogenic claudication and spondylolisthesis Discharge Data Allergies Allergy/AdvReac Type Severity Reaction Status Date / Time No Known Allergies Allergy Verified 04/11/23 07:33 Consultations 04/15/23 14:20 Consult Hospitalist Routine Procedures Performed Operation Date: 04/15/23 10:05 Actual Procedures p L4-S1 Decompression and Fusion, Spinal Cord Monitoring(Not Applicable) - Timothy Bonilla DO Ordered Studies 04/15/23 10:05 [place] lumbar spine 2-3V Routine Hospital Course (1) Neurogenic claudication due to lumbar spinal stenosis: Patient with lumbar decompression fusion tolerated this well was taken to orthopedic for postoperative postop and when she is up and ambulating progress postop day #2 on postop day #3 pain was well controlled excellent strength testing JACKY drain decreased probably. Subsequent discharge home. Discharge orders and instructions found in chart for further review. Total Time Total Time Spent Total Time Spent (In Minutes): 20 minutes Discharge Plan Discharge Items Patient Disposition: Home - Self-Care Reason For Visit: Spondylolisthesis, Lumbar Region Discharge Diagnosis: Lumbar spinal stenosis with spondylolisthesis and neurogenic claudication Activity: As commented below Non-emergency contact: Primary Care Provider Call non-emergency contact if: you have any medication questions Follow-up/Referrals: Zi Cooper DO [Primary Care Provider] - Diet: Regular Addtl Attending Provider Instructions: ACTIVITY RECOMMENDATIONS: SELF CARE INSTRUCTIONS AFTER THORACIC/LUMBAR FUSIONS 1. You may walk to your tolerance. It is good exercise for your legs and back. Expect some back and intermittent leg aches and pains. 2. You may perform "counter-top" level activities (make a sandwich, anselmo with a project, etc.). 3. No bending or lifting of more than 10 pounds or back twisting of any nature (roll like a log when turning in bed). 4. You may ride in a car for 20-30 minutes at a time. No driving until after your first visit with your doctor. 5. Frequent changes of position and restricting sitting to 30 minutes at a time will help limit the amount of back spasms and stiffness you may experience. 6. You may discontinue the use of ambulatory aids (cane, crutches, etc.) once your strength and confidence allow. 7. You may program administrator the shower and let water strike your incision when you arrive home at least once daily. Do not take a tub bath, sit in a hot tub or go into a swimming pool until after your first recheck in the office. SPECIAL CARE INSTRUCTIONS: VERY IMPORTANT TO READ AND REVIEW A. Your surgical incision has been closed with a cosmetic suture under the skin that will dissolve in about 6 weeks. In 14 days, you can use a pair of clean scissors and cut the suture that is left outside of the skin at the ends of your incision. 1. The small skin tapes can be removed 7 days after surgery if they have not fallen off by that point. 2. You may keep the wound open to air as much as possible to promote healing after post-op day number 5 unless told otherwise by your doctor. 3. If you think the wound looks like it is becoming infected (redness or worsening drainage) and/or you are experiencing fever, chill or worsening back pain and muscle spasms, contact the office so that we may evaluate you as soon as possible. B. Complications are uncommon, but please contact us if you have any signs or symptoms of: 1. wound infection (fever higher than 102.5 degrees F, redness, separation of wound, drainage, or increasing pain from the incision) 2. blood clots in legs (pain, swelling, redness and warmth in legs) 3. urinary tract infection (fever higher than 102.5 degrees F, burning upon urination or increased frequency of urination) 4. nerve problems (inability to walk on your toes or heels, numbness, loss of bowel or bladder control) 5. any other symptoms that concern you C. Please call the office at if you have any concerns or questions about your operation or recovery. D. No smoking! Smoking drastically decreases the chance of a solid fusion. E. Do not take any anti-inflammatory medications (Indocin, Advil, Motrin, Aspirin, Naprosyn, etc.) as these may inhibit the chance of a solid fusion. Tylenol is okay to take for pain. MANAGING PAIN AFTER SPINAL SURGERY 1. Narcotic medication is intended for short-term use and will be provided for surgical pain. Surgical pain usually lasts for a period of 4-6 weeks. Narcotic medication includes Percocet, Vicodin, Darvocet, Tylenol #3 or Lortab. 2. Longer-term pain is more appropriately treated with non-narcotic medication such as Tylenol ES. 3. Muscle spasm is not appropriately treated with narcotics. Muscle relaxers such as Soma, Flexeril or Skelaxin can be used along with Tylenol ES. 4. Remember that we all live with some "aches and pains". This is not unusual or uncommon after an injury or as we get older. a. Back pain is expected and may include muscle spasms for 4 to 6 weeks after surgery. The pain should gradually improve. If the pain worsens for no apparent reason, please contact the office. b. Intermittent leg pain may also be experienced and should not be concerned about unless it worsens for no apparent reason. If so, please contact the office. 5. We will provide appropriate medication within the normal guidelines of their prescribed use. We will also be very cautious and aware of potential abuse and extended duration of patients' medication needs. a. Pain medications are for your comfort and to assist with sleep and rest so that the tissue can heal. They are not provided in order to return to normal activity and should not be used through the day. To do so or worsening pain at night can result from ongoing tissue damage and development of tolerance to the prescribed medicine. 6. Please allow 2-3 days to process refills. Prescriptions will not be mailed but must be picked up at the office. FOLLOW UP VISIT: Keep your scheduled follow-up appointment. Any questions, please call the office at . Pending Studies at Discharge: No Stand-Alone Forms: My [facility] [email or web address], Smoking Cessation Medications and DC Order Prescriptions: New tramadol 50 mg tablet 50 mg PO Q6H PRN (Reason: pain, moderate) Qty: 30 0RF oxycodone 5 mg tablet 5 mg PO Q6H PRN (Reason: pain) Qty: 30 0RF Continued metformin 500 mg tablet extended release 24hr 500 mg PO DAILY Qty: 90 1RF Rx Instructions: evenings Nexplanon 68 mg implant 1 implant subdermal ONCE Qty: 1 0RF famotidine 40 mg tablet 40 mg PO DAILY Qty: 30 2RF citalopram 20 mg tablet 20 mg PO DAILY Qty: 90 3RF gabapentin [Neurontin] 300 mg capsule 600 mg PO PM PRN (Reason: Pain) dextroamphetamine-amphetamine [Adderall XR] 10 mg capsule,extended release 24hr 5 mg PO DAILY cyclobenzaprine 5 mg tablet 5 - 10 mg PO HS PRN (Reason: muscle relax) Discharge Orders: Discharge Order (Routine); Ordered 04/18/23 Ordered By: Timothy Bonilla Admission Data Admit Date/Time: 04/15/23 12:34 Attending Provider: Timothy Bonilla Admit Provider: Timothy Bonilla Primary Care Provider: Zi Cooper Other Providers: Vamsi Almaraz ; Jodi Melton
== END 2023-04-18 11:24 | disposition home or self-care (01) | DRG 454 ==
LOC: ASU 08:22 → PACUINP 12:34 → INTOOBSV 12:34 → 3E 14:58